=== PATIENT | male | born 1990 | race Caucasian/White ===

== ENCOUNTER 2020-08-11 09:26 | Emergency (ER) | payer OTHER ==
[~2020-08-11] VITALS: Ht 172.7 cm; Wt 90.9 kg
[~2020-08-11 09:26] MED LIST: NO MEDS
[2020-08-11 11:30] VITALS: BP 124/54
== END 2020-08-11 11:32 | disposition home or self-care (01) ==
LOC: EMS 09:29
DX: S93.401A Sprain of unspecified ligament of right ankle, initial encounter (principal); F17.210 Nicotine dependence, cigarettes, uncomplicated; F12.90 Cannabis use, unspecified, uncomplicated; X50.9XXA Other and unspecified overexertion or strenuous movements or postures, initial encounter; Y93.89 Activity, other specified; Y92.89 Other specified places as the place of occurrence of the external cause; Y99.8 Other external cause status

== ENCOUNTER 2024-04-09 13:49 | Emergency (ER) | payer MEDICAID, OTHER ==
[~2024-04-09] VITALS: Ht 172.7 cm; Wt 133.6 kg
[2024-04-09 14:06] VITALS: TEMP 98.5
[2024-04-09] MEDS ORDERED: CEPH-558 PO (17:35)
[2024-04-09] MEDS ORDERED: SULF-261 PO (17:35)
[2024-04-09] MEDS: LIDOCAINE/PF 1% 2 ML VIAL IM ONE (17:47)
[2024-04-09] MEDS: CefTRIAXone SODIUM 1 GM/VIAL IM ONE (17:48)
[2024-04-09 18:52] VITALS: BP 112/65; PULSE 82; RESP 18
== END 2024-04-09 18:30 | disposition home or self-care (01) ==
LOC: EMS 13:49
DX: L03.317 Cellulitis of buttock (principal); F17.210 Nicotine dependence, cigarettes, uncomplicated; F12.90 Cannabis use, unspecified, uncomplicated
CPT/HCPCS: 99283; 96372; J0696; J3490